=== PATIENT | male | born 1985 | race Caucasian/White ===

== ENCOUNTER 2021-11-16 17:16 | Emergency (ER) | payer OTHER, SELFPAY ==
[2021-11-16 18:07] LABS: Absolute Lymphocytes (CBC) 2.3 K/uL (0.7-4.9); Hematocrit 37.1 % (39.6-49.0); Lymphocytes % 36.2 % (15.3-44.8); MPV 7.2 fL (7.6-11.3)
[2021-11-16] MEDS ORDERED: NA CHLORIDE 0.9% 1,000 ML ONE (18:08)
[2021-11-16 18:26] LABS: Albumin 3.6 g/dL (3.4-5.0); Bilirubin Total 0.3 mg/dL (0.2-1.0); Potassium 3.6 mmol/L (3.5-5.1); Protein, Total 6.8 g/dL (6.4-8.2)
[2021-11-16 19:06] LABS: Urine Blood Negative (Negative); Urine Glucose Negative (Negative); Urine Protein Negative (Negative)
--- NOTE | 2021-11-16 19:21 | EDPHYS ---
Physician Documentation [facility] Name: Jeff Willams Age: 36 yrs Sex: Male : 1985 Arrival Date: 11/16/2021 Time: 17:19 Bed 15 Private MD: ED Physician Daryl Dave HPI: 11/16 17:47 This 36 yrs old Male presents to ER via Ambulatory with complaints of Ankle Swelling, pm1 Wrist Swelling. 17:47 The patient presents with swelling, to bilateral wrists and ankles. Onset: The pm1 symptoms/episode began/occurred today. Context: The problem was sustained at home, none The patient can fully bear weight on the affected extremity. Associated signs and symptoms: The patient has no apparent associated signs or symptoms, Pertinent negatives: calf tenderness, fever. Modifying factors: The symptoms are alleviated by nothing, the symptoms are aggravated by nothing. Severity of symptoms: in the emergency department the symptoms are unchanged. The patient has not experienced similar symptoms in the past. The patient has not recently seen a physician. Historical: - Allergies: 17:35 No Known Allergies; ll1 - PMHx: 17:35 lung collapse; ll1 - PSHx: 17:35 legSX; ll1 - Immunization history:: Client reports having NOT received the Covid vaccine. - Social history:: Smoking status: Reported history of juuling and/or vaping. Patient denies any tobacco usage or history of. ROS: 17:47 Constitutional: Negative for fever, chills, and weight loss, Cardiovascular: Negative pm1 for chest pain, palpitations, and edema, Respiratory: Negative for shortness of breath, cough, wheezing, and pleuritic chest pain, Abdomen/GI: Negative for abdominal pain, nausea, vomiting, diarrhea, and constipation, MS/Extremity: Negative for injury and deformity, Skin: Negative for injury, rash, and discoloration, Neuro: Negative for headache, weakness, numbness, tingling, and seizure. 17:47 All other systems are negative. Exam: 17:47 Constitutional: This is a well developed, well nourished patient who is awake, alert, pm1 and in no acute distress. Head/Face: Normocephalic, atraumatic. 17:47 Abdomen/GI: Soft, non-tender, with normal bowel sounds. No distension or tympany. No guarding or rebound. No evidence of tenderness throughout. Back: No spinal tenderness. No costovertebral tenderness. Full range of motion. Skin: Warm, dry with normal turgor. Normal color with no rashes, no lesions, and no evidence of cellulitis. 17:47 Cardiovascular: Exam negative for acute changes, Rate: normal, Rhythm: regular, Pulses: no pulse deficits are appreciated, Heart sounds: normal. 17:47 Respiratory: Exam negative for acute changes, respiratory distress, shortness of breath. 17:47 Musculoskeletal/extremity: Extremities: all appear grossly normal, with no appreciated pain with palpation, negative for edema or swelling to any extremity. 17:47 Neuro: Exam negative for acute changes, Orientation: is normal, Mentation: is normal, Motor: is normal, moves all fours. Vital Signs: 17:36 BP 135 / 79; Pulse 85; Resp 17; Pulse Ox 97% ; Weight 86.18 kg; Height 5 ft. 11 in. ll1 (180.34 cm); Pain 0/10; 19:14 BP 111 / 75; Pulse 72; Resp 18; Temp 98.9; Pulse Ox 96% on R/A; ke1 17:36 Body Mass Index 26.50 (86.18 kg, 180.34 cm) ll1 MDM: 17:36 Patient medically screened. pm1 18:37 Data reviewed: vital signs. Data interpreted: Pulse oximetry: on room air is 97 %. pm1 Interpretation: normal. 19:17 Counseling: I had a detailed discussion with the patient and/or guardian regarding: the pm1 historical points, exam findings, and any diagnostic results supporting the discharge/admit diagnosis, lab results, the need for outpatient follow up, to return to the emergency department if symptoms worsen or persist or if there are any questions or concerns that arise at home. 11/16 17:46 Order name: CPK; Complete Time: 18:55 pm1 11/16 17:46 Order name: CBC with Diff; Complete Time: 18:55 pm1 11/16 17:46 Order name: IV Saline Lock; Complete Time: 17:57 pm1 11/16 17:46 Order name: CMP; Complete Time: 18:55 pm1 11/16 19:06 Order name: Urine Dipstick-Ancillary; Complete Time: 19:17 EDMS Administered Medications: 18:05 Drug: NS 0.9% 1000 ml Route: IV; Rate: 1000 ml; Site: right forearm; jb4 Disposition Summary: 11/16/21 19:20 Discharge Ordered Location: Home pm1 Problem: new pm1 Symptoms: have improved pm1 Condition: Stable pm1 Diagnosis - Localized edema pm1 Followup: pm1 - With: Emergency Department - When: As needed - Reason: Worsening of condition Followup: pm1 - With: Private Physician - When: 2 - 3 days - Reason: Recheck today's complaints, Continuance of care, Re-evaluation by your physician Discharge Instructions: - Discharge Summary Sheet pm1 - Peripheral Edema pm1 Forms: - Medication Reconciliation Form pm1 - Thank You Letter pm1 - Antibiotic Education pm1 - Prescription Opioid Use pm1 Signatures: Dispatcher [employer] EDMS Marquis Diaz, EDSON AUTOMATED PROCESS OPERATOR pm1 Manoj Peters, RN RN jb4 Yoselin Poe RN RN ll1
--- NOTE | 2021-11-16 19:21 | ER ---
Nurse's Notes [facility] Name: Jeff Willams Age: 36 yrs Sex: Male : 1985 Arrival Date: 11/16/2021 Time: 17:19 Bed 15 Private MD: Diagnosis: Localized edema Presentation: 11/16 17:36 Chief complaint: Patient states: Bilateral ankle and wrists swelling since Wednesday ll1 afternoon. 1+ swelling BLE. 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 Tries to stay hydrated but has noticed some dark brown urine. No fever or cough. Coronavirus screen: Vaccine status: Patient reports being unvaccinated. Client denies travel out of the [place] in the last 14 days. At this time, the client does not indicate any symptoms associated with coronavirus-19. Ebola Screen: Patient denies travel to an Ebola-affected area in the 21 days before illness onset. Initial Sepsis Screen: Does the patient meet any 2 criteria? No. Patient's initial sepsis screen is negative. Does the patient have a suspected source of infection? No. Patient's initial sepsis screen is negative. Risk Assessment: Do you want to hurt yourself or someone else? Patient reports no desire to harm self or others. Onset of symptoms was November 14, 2021. 17:36 Method Of Arrival: Ambulatory ll1 17:36 Acuity: JESÚS 3 ll1 Historical: - Allergies: 17:35 No Known Allergies; ll1 - PMHx: 17:35 lung collapse; ll1 - PSHx: 17:35 legSX; ll1 - Immunization history:: Client reports having NOT received the Covid vaccine. - Social history:: Smoking status: Reported history of juuling and/or vaping. Patient denies any tobacco usage or history of. Screenin:45 Abuse screen: Denies threats or abuse. Nutritional screening: No deficits noted. jb4 Tuberculosis screening: No symptoms or risk factors identified. Fall Risk None identified. Assessment: 17:45 General: Appears in no apparent distress. comfortable, Behavior is calm, cooperative, jb4 appropriate for age. Pain: Denies pain. Neuro: Level of Consciousness is awake, alert, obeys commands, Oriented to person, place, time, situation. Cardiovascular: Patient's skin is warm and dry. Respiratory: Airway is patent Respiratory effort is even, unlabored, Respiratory pattern is regular, symmetrical. Derm: Skin is pink, warm \T\ dry. Musculoskeletal: Circulation, motion, and sensation intact. Range of motion: intact in all extremities. Injury Description: Abrasion sustained to right arm, right leg and left leg. 18:42 Reassessment: Patient appears in no apparent distress at this time. Patient and/or jb4 family updated on plan of care and expected duration. Pain level reassessed. Patient is alert, oriented x 3, equal unlabored respirations, skin warm/dry/pink. 19:14 Reassessment: Patient appears in no apparent distress at this time. Patient and/or ke1 family updated on plan of care and expected duration. Pain level reassessed. Patient is alert, oriented x 3, equal unlabored respirations, skin warm/dry/pink. Patient denies pain at this time. Vital Signs: 17:36 BP 135 / 79; Pulse 85; Resp 17; Pulse Ox 97% ; Weight 86.18 kg; Height 5 ft. 11 in. ll1 (180.34 cm); Pain 0/10; 19:14 BP 111 / 75; Pulse 72; Resp 18; Temp 98.9; Pulse Ox 96% on R/A; ke1 17:36 Body Mass Index 26.50 (86.18 kg, 180.34 cm) ll1 ED Course: 17:19 Patient arrived in ED. mr 17:31 Marquis Diaz, EDSON is PHCP. pm1 17:31 Daryl Dave MD is Attending Physician. pm1 17:40 Triage completed. ll1 17:40 Arm band placed on. ll1 17:42 Manoj Peters, RAMON is Primary Nurse. jb4 17:45 Patient has correct armband on for positive identification. Bed in low position. Call jb4 light in reach. Side rails up X 1. 17:55 Inserted saline lock: 20 gauge in right forearm, using aseptic technique. Blood jb4 collected. 17:57 CBC with Diff Sent. jb4 17:57 CMP Sent. jb4 17:58 CPK Sent. jb4 19:22 No provider procedures requiring assistance completed. IV discontinued. ke1 Administered Medications: 18:05 Drug: NS 0.9% 1000 ml Route: IV; Rate: 1000 ml; Site: right forearm; jb4 Medication: 17:45 VIS not applicable for this client. jb4 Outcome: 19:20 Discharge ordered by MD. pm1 19:22 Discharged to home ambulatory. ke1 19:22 Condition: good 19:22 Discharge instructions given to patient. 19:23 Patient left the ED. ke1 Signatures: Mariluz Pitts mr DiazMarquis, DESKTOP SUPPORT CONSULTANT DESKTOP SUPPORT CONSULTANT pm1 Manoj Peters RN RN jb4 Yoselin Poe RN RN 1 Darin Bowman RN RN ke1
[2021-11-16 19:43] VITALS: BP 111/75; TEMP 98.9; O2SAT 96
== END 2021-11-16 19:23 | disposition home or self-care (01) ==
LOC: ER 17:16
DX: R60.0 Localized edema (principal)
CPT/HCPCS: 36415; 80053; 81003; 82550; 85025; J7030

== ENCOUNTER 2021-12-22 10:20 | Emergency (ER) | payer OTHER ==
--- NOTE | 2021-12-22 11:06 | RAD REPORT ---
EXAM DESCRIPTION: RAD - Elbow Left 3 View - 12/22/2021 10:54 am CLINICAL HISTORY: Pain, swelling COMPARISON: None. FINDINGS: No fracture is identified and no elevated posterior fat pad. There is no dislocation or pe riosteal reaction noted. No acute bone or joint finding identifiable. Soft tissues a prominent along the medial and posterior aspect of the elbow joint. There is no eviden ce for joint involvement and no air or foreign body identifiable. IMPRESSION: Soft tissue swelling in the left elbow region without air or foreign body. No acute bone or joint finding.
--- NOTE | 2021-12-22 12:05 | EDPHYS ---
Physician Documentation [facility] Name: Jeff Willams Age: 36 yrs Sex: Male : 1985 Arrival Date: 12/22/2021 Time: 10:23 Bed 11 Private MD: ED Physician Noah Dawn HPI: 12/22 12:04 This 36 yrs old Male presents to ER via Ambulatory with complaints of Elbow Swelling. pm1 12:04 Onset: The symptoms/episode began/occurred yesterday. pm1 12:04 The patient or guardian complains of pain, that is acute, swelling, tenderness. The pm1 complaints affect the left elbow. Context: resulted from repetitive motion at work. Modifying factors: The symptoms are alleviated by remaining still, the symptoms are aggravated by movement. Associated signs and symptoms: Pertinent negatives: deformity, injury. Severity of symptoms: in the emergency department the symptoms have improved, swelling has decreased from yesterday. The patient has not experienced similar symptoms in the past. The patient has not recently seen a physician. Historical: - Allergies: 10:26 No Known Allergies; ap3 - Home Meds: 10:26 Paxil 40 mg oral tab [Active]; ap3 - PMHx: 10:26 lung collapse; Anxiety; ap3 - Immunization history:: Client reports having NOT received the Covid vaccine. Last tetanus immunization: up to date 2019. - Social history:: Smoking status: Reported history of juuling and/or vaping. Patient uses alcohol, occasionally. street drugs, marijuana. ROS: 12:04 Constitutional: Negative for fever, chills, and weight loss, Cardiovascular: Negative pm1 for chest pain, palpitations, and edema, Respiratory: Negative for shortness of breath, cough, wheezing, and pleuritic chest pain. 12:04 Skin: Negative for injury, rash, and discoloration, Neuro: Negative for headache, weakness, numbness, tingling, and seizure. 12:04 MS/extremity: Positive for pain, swelling, tenderness, of the left elbow. 12:04 All other systems are negative. Exam: 12:04 Constitutional: This is a well developed, well nourished patient who is awake, alert, pm1 and in no acute distress. Head/Face: Normocephalic, atraumatic. 12:04 Skin: Warm, dry with normal turgor. Normal color with no rashes, no lesions, and no evidence of cellulitis. 12:04 Cardiovascular: Exam negative for acute changes, Rate: normal, Rhythm: regular, Pulses: no pulse deficits are appreciated. 12:04 Respiratory: Exam negative for acute changes, respiratory distress, shortness of breath. 12:04 Musculoskeletal/extremity: Extremities: grossly normal except: noted in the left elbow: swelling, tenderness, There is no evidence of decreased ROM, deformity. 12:04 Neuro: Exam negative for acute changes, Orientation: is normal, Mentation: is normal, Motor: is normal, moves all fours. Vital Signs: 10:24 Pulse 87; Resp 18; Temp 98.0; Pulse Ox 100% ; Weight 81.65 kg; Height 5 ft. 10 in. ap3 (177.80 cm); Pain 8/10; 10:25 BP 147 / 78; jl7 10:24 Body Mass Index 25.83 (81.65 kg, 177.80 cm) ap3 MDM: 11:34 Patient medically screened. [facility] 12:04 Data reviewed: vital signs. Data interpreted: Pulse oximetry: on room air is 100 %. pm1 Interpretation: normal. Counseling: I had a detailed discussion with the patient and/or guardian regarding: the historical points, exam findings, and any diagnostic results supporting the discharge/admit diagnosis, radiology results, the need for outpatient follow up, to return to the emergency department if symptoms worsen or persist or if there are any questions or concerns that arise at home. 15:21 ED course: [place] reviewed. pm1 12/22 10:30 Order name: XRAY Elbow LEFT 3 view; Complete Time: 11:41 ap3 12/22 12:04 Order name: Bety; Complete Time: 12:20 pm1 Administered Medications: 12:21 Drug: predniSONE 60 mg Route: PO; jl7 12:22 Follow up: Response: Medication administered at discharge. jl7 12:22 Drug: Ibuprofen 800 mg Route: PO; jl7 12:22 Follow up: Response: Medication administered at discharge. jl7 12:22 Not Given (Pt drivingg): [place] (HYDROcodone-acetaminophen) 10 mg-325 mg 1 tabs PO once jl7 Disposition Summary: 12/22/21 12:05 Discharge Ordered Location: Home pm1 Problem: new pm1 Symptoms: have improved pm1 Condition: Stable pm1 Diagnosis - Olecranon bursitis, left elbow pm1 Followup: pm1 - With: Emergency Department - When: As needed - Reason: Worsening of condition Followup: pm1 - With: Private Physician - When: 2 - 3 days - Reason: Recheck today's complaints, Continuance of care, Re-evaluation by your physician Discharge Instructions: - Discharge Summary Sheet pm1 - Elbow Bursitis pm1 Forms: - Medication Reconciliation Form pm1 - Thank You Letter pm1 - Antibiotic Education pm1 - Prescription Opioid Use pm1 - Work release form pm1 Prescriptions: - Diclofenac Sodium 75 mg Oral Tablet Sustained Release - take 1 tablet by ORAL route 2 times per day; 30 tablet; Refills: 0, Product pm1 Selection Permitted - Medrol (Edwin) 4 mg Oral Tablets, Dose Pack - take 1 tablet by ORAL route as directed - follow package instructions; 1 pm1 packet; Refills: 0, Product Selection Permitted - Tylenol-Codeine #3 300 mg-30 mg Oral - take 2 tablet by ORAL route every 4-6 hours As needed; 20 tablet; Refills: 0, pm1 Product Selection Permitted Signatures: Dispatcher [employer] Noah Mccormack MD MD cha Marinas, Patrick, NP TRANSIT DEPARTMENT CLERK pm1 Sharmaine Savage, RN RN jl7 Shirley Dunn RN RN ap3
--- NOTE | 2021-12-22 12:05 | ER ---
Nurse's Notes [facility] Name: Jeff Willams Age: 36 yrs Sex: Male : 1985 Arrival Date: 12/22/2021 Time: 10:23 Bed 11 Private MD: Diagnosis: Olecranon bursitis, left elbow Presentation: 12/22 10:24 Chief complaint: Patient states: he woke up with left elbow pain, and noticed some ap3 swelling and deformity to the left elbow. 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 Coronavirus screen: At this time, the client does not indicate any symptoms associated with coronavirus-19. Ebola Screen: No symptoms or risks identified at this time. Initial Sepsis Screen: Does the patient meet any 2 criteria? No. Patient's initial sepsis screen is negative. Does the patient have a suspected source of infection? No. Patient's initial sepsis screen is negative. Risk Assessment: Do you want to hurt yourself or someone else? Patient reports no desire to harm self or others. Onset of symptoms was December 22, 2021. 10:24 Method Of Arrival: Ambulatory ap3 10:24 Acuity: JESÚS 4 ap3 Triage Assessment: 10:27 General: Appears in no apparent distress. Behavior is calm, cooperative, appropriate ap3 for age. Pain: Complains of pain in left elbow Pain currently is 8 out of 10 on a pain scale. at worst was 10 out of 10 on a pain scale. Pain began gradually, 1 day ago. Aggravated by increased activity. Neuro: Level of Consciousness is awake, alert, obeys commands, Oriented to person, place, time, situation. Cardiovascular: Patient's skin is warm and dry. Respiratory: Airway is patent Respiratory effort is even, unlabored. Musculoskeletal: Swelling present in left elbow. Historical: - Allergies: 10:26 No Known Allergies; ap3 - Home Meds: 10:26 Paxil 40 mg oral tab [Active]; ap3 - PMHx: 10:26 lung collapse; Anxiety; ap3 - Immunization history:: Client reports having NOT received the Covid vaccine. Last tetanus immunization: up to date 2019. - Social history:: Smoking status: Reported history of juuling and/or vaping. Patient uses alcohol, occasionally. street drugs, marijuana. Screenin:28 Abuse screen: Denies threats or abuse. Nutritional screening: No deficits noted. ap3 Tuberculosis screening: No symptoms or risk factors identified. Fall Risk None identified. Vital Signs: 10:24 Pulse 87; Resp 18; Temp 98.0; Pulse Ox 100% ; Weight 81.65 kg; Height 5 ft. 10 in. ap3 (177.80 cm); Pain 8/10; 10:25 BP 147 / 78; jl7 10:24 Body Mass Index 25.83 (81.65 kg, 177.80 cm) ap3 ED Course: 10:23 Patient arrived in ED. mr 10:26 Triage completed. ap3 10:28 Arm band placed on right wrist. ap3 10:56 XRAY Elbow LEFT 3 view In Process Unspecified. EDMS 11:28 Marquis Diaz NP is PHCP. pm1 11:28 Noah Dawn MD is Attending Physician. pm1 11:30 Sharmaine Savage RN is Primary Nurse. jl7 12:15 Patient has correct armband on for positive identification. jl7 12:20 Wound care: ice pack applied. dh3 12:23 No provider procedures requiring assistance completed. Patient did not have IV access jl7 during this emergency room visit. Sling applied to left arm. Administered Medications: 12:21 Drug: predniSONE 60 mg Route: PO; jl7 12:22 Follow up: Response: Medication administered at discharge. jl7 12:22 Drug: Ibuprofen 800 mg Route: PO; jl7 12:22 Follow up: Response: Medication administered at discharge. jl7 12:22 Not Given (Pt drivingg): [place] (HYDROcodone-acetaminophen) 10 mg-325 mg 1 tabs PO once jl7 Medication: 12:23 VIS not applicable for this client. jl7 Outcome: 12:05 Discharge ordered by . pm1 12:23 Discharged to home ambulatory. jl7 12:23 Condition: stable 12:23 Discharge instructions given to patient, Instructed on discharge instructions, follow up and referral plans. medication usage, Demonstrated understanding of instructions, follow-up care, medications, Prescriptions given X 3. 12:23 Patient left the ED. jl7 Signatures: Dispatcher [employer] [facility] Hong Mariluz mr Marquis Diaz, EDSON AREA DEVELOPMENT MANAGER pm1 Sharmaine Savage, RAMON RN jl7 Sylvia Camarena dh3 Prokisch, Shirley, RN RN ap3
[2021-12-22] MEDS ORDERED: predniSONE 20 MG TAB ONE (12:22)
[2021-12-22] MEDS ORDERED: IBUPROFEN 400 MG TAB ONE (12:22)
[2021-12-22 12:38] VITALS: TEMP 98; O2SAT 100
[2021-12-22 12:39] VITALS: BP 147/78
== END 2021-12-22 12:23 | disposition home or self-care (01) ==
LOC: ER 10:20
DX: M70.22 Olecranon bursitis, left elbow (principal); F41.9 Anxiety disorder, unspecified
CPT/HCPCS: 73080; 99284; J7512